=== PATIENT | female | born 1960 ===

== ENCOUNTER 2025-07-03 08:38 | Day surgery (SDC) | payer OTHER ==
[2025-07-03] MEDS ORDERED: fentaNYL CITRATE 50 MCG/ML AMPUL IV PUSH ONE (11:30)
[2025-07-03] MEDS ORDERED: ONDANSETRON HCL 2 MG/ML VIAL IV ONE (11:30)
[2025-07-03] MEDS ORDERED: DIPHENHYDRAMINE HCL 50 MG/ML VIAL 1ML IV ONE (11:30)
[2025-07-03] MEDS ORDERED: MIDAZOLAM HCL 2 MG/2 ML VIAL IV ONE (11:30)
== END 2025-07-03 12:40 | disposition home or self-care (01) ==
LOC: AMB-ENDOS 08:38
PROVIDERS: ATTEND Internal Medicine
DX: K63.5 Polyp of colon (principal); D12.4 Benign neoplasm of descending colon; K57.30 Diverticulosis of large intestine without perforation or abscess without bleeding; K64.4 Residual hemorrhoidal skin tags